=== PATIENT | male | born 1975 | race American Indian/Alaskan Native ===

== ENCOUNTER 2017-04-12 10:21 | Outpatient (CLI) | payer OTHER ==
--- NOTE | 2017-04-12 12:32 | XRay Report ---
RIGHT SHOULDER: The History: Right shoulder injury. Routine views demonstrate normal bony and soft tissue structures with normal joint alignment of the shoulder. IMPRESSION: Normal study.
== END 2017-04-12 10:22 | disposition home or self-care (01) ==
LOC: XRAY 10:21
PROVIDERS: ATTEND Internal Medicine
DX: S49.91XA Unspecified injury of right shoulder and upper arm, initial encounter (principal); X58.XXXA Exposure to other specified factors, initial encounter; Y93.89 Activity, other specified; Y92.89 Other specified places as the place of occurrence of the external cause; Y99.8 Other external cause status

== ENCOUNTER 2018-08-19 15:59 | Emergency (ER) | payer OTHER ==
[2018-08-19 16:10] VITALS: BP 139/82
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
[2018-08-19] MEDS ORDERED: NORCO 10/325 ONE (18:09)
[2018-08-19] MEDS ORDERED: NORCO 10/325 PO ONE (18:10)
== END 2018-08-19 19:27 | disposition home or self-care (01) ==
LOC: ED 15:59
DX: S02.40EA Zygomatic fracture, right side, initial encounter for closed fracture (principal); Y08.89XA Assault by other specified means, initial encounter; Y93.89 Activity, other specified; Y92.89 Other specified places as the place of occurrence of the external cause; Y99.8 Other external cause status
CPT/HCPCS: 70450; 70486